=== PATIENT | female | born 2000 | race Two or more races ===

== ENCOUNTER → 2024-07-23 | Outpatient (CLI) | payer MEDICAID, SELFPAY ==
--- NOTE | 2024-07-23 14:30 | XR_ITS ---
Examination: Breast ultrasound, unilateral, right complete Date and time of exam: July 23, 2024 1504 hours INDICATIONS: Nonhealing retroareolar breast weighted, likely abscess diagnosis one year ago, recurrent antibiotic therapy recurrent abscess Technique: Real-time pelaez scale ultrasonographic imaging performed right breast including all 4 quadrants as well as nipple retroareolar and axillary region. Findings: No cystic or solid mass depicted No abscess identified Skin the retroareolar region appears thickened, likely scar formation but clinical correlation advised IMPRESSION: No discrete breast abscess currently identified
== END | disposition home or self-care (01) ==
PROVIDERS: PCP Nurse Practitioner Family; Referring Provider Nurse Practitioner Family; Visit Provider Nurse Practitioner Family
DX: N61.1 Abscess of the breast and nipple (principal)
CPT/HCPCS: 76641